=== PATIENT | male | born 1940 | race Caucasian/White ===

== ENCOUNTER 2020-09-10 13:59 | Inpatient (IN) ==
[2020-09-10 14:39] LABS: Basophils % 0.3 % (0.0-0.8); Eosinophils # 0.1 10*3/uL (0.0-0.87); Eosinophils % 0.9 % (0.00-10.9); Hematocrit 41.4 VOL% (42.0-52.0); Hemoglobin 14.2 GM/DL (14.0-18.0); Immature Granulocytes % 0.5 %; Immature Granulocytes Absolute 0.04 #; Lymphocytes # 1.7 10*3/uL (1.4-4.0); Mean Corpuscular HGB Conc 34.3 GM/DL (32-36); Mean Corpuscular Volume 89.6 FL (87-102); Monocytes % 7.2 % (1.7-12.7); Neutrophils % 72.1 % (38.7-73.9); Platelet Count 176 T/CUMM (130-400); Red Blood Count 4.62 MC/CUMM (3.8-5.5); Red Cell Distribution Width 13.6 % (9.3-17.3); White Blood Count 8.7 T/CUMM (4-12)
[2020-09-10 15:09] LABS: Alanine Aminotransferase 26 U/L (16-61); Albumin 3.2 G/DL (3.4-5.0); Alkaline Phosphatase 77 U/L (45-117); Aspartate Amino Transferase 55 U/L (0-37); Blood Urea Nitrogen 33 MG/DL (7-18); Calcium 8.8 MG/DL (8.5-10.1); Carbon Dioxide 20 MMOL/L (21-32); Estimated Glom Filtration Rate 47 ML/MIN; Ferritin 342.4 ng/ml (26-388); Glucose 354 MG/DL (74-106); Osmolality,Calculated 288.2 MOS/KG (273-304); Potassium 4.4 MMOL/L (3.5-5.1); Sodium 134 MMOL/L (136-145); Total Protein 7.5 G/DL (6.4-8.3)
[2020-09-10 15:19] LABS: INR 2.8
[2020-09-10 15:22] LABS: PT Patient Result 28.6 SECS (9.8-11.9)
[2020-09-10] MEDS ORDERED: cefTRIAXone 1,000 MG in SODIUM CHLORIDE 0.9% 100 ML IV STA (15:23)
[2020-09-10] MEDS ORDERED: AZITHROMYCIN 250 MG TABLET PO STA (15:23)
[2020-09-10] MEDS ORDERED: INSULIN REGULAR 100 UNIT/ML SUBCUT STA (15:38)
[2020-09-10] MEDS ORDERED: ONDANSETRON 4 MG/2 ML VIAL IV PRN (16:34)
[2020-09-10] MEDS ORDERED: ACETAMINOPHEN 325 MG TABLET PO PRN (16:34)
[2020-09-10] MEDS ORDERED: DEXTROSE 50% 25 GM/50 ML VIAL IV PRN (16:34)
[2020-09-10] MEDS ORDERED: hydrALAZINE 20 MG/1 ML VIAL IV PRN (16:34)
[2020-09-10] MEDS ORDERED: guaiFENesin/DM ER 600-30 MG TABLET PO PRN (16:34)
[2020-09-10] MEDS ORDERED: LACTULOSE 20 GM/30 ML UDCUP PO PRN (16:34)
[2020-09-10] MEDS ORDERED: GLUCAGON 1 MG VIAL IM PRN (16:34)
[2020-09-10] MEDS ORDERED: DOCUSATE SODIUM 100 MG CAPSULE PO PRN (16:34)
[2020-09-10] MEDS ORDERED: SODIUM CHLORIDE 0.9% 2,100 ML IV ONE (16:34)
[2020-09-10] MEDS: SODIUM CHLORIDE 0.9% 1,000 ML IV SCH (18:47)
[2020-09-10] MEDS: ALBUTEROL/IPRATROPIUM 3 ML NEB RESP TX SCH (19:20)
[2020-09-11] MEDS: ALBUTEROL/IPRATROPIUM 3 ML NEB RESP TX SCH ×4 (01:43→20:07)
[2020-09-11] MEDS: SODIUM CHLORIDE 0.9% 1,000 ML IV SCH ×3 (03:15→18:35)
[2020-09-11 06:42] LABS: Basophils % 0.6 % (0.0-0.8); Eosinophils # 0.2 10*3/uL (0.0-0.87); Hematocrit 35.1 VOL% (42.0-52.0); Immature Granulocytes % 0.4 %; Immature Granulocytes Absolute 0.02 #; Lymphocytes # 1.7 10*3/uL (1.4-4.0); Lymphocytes % 32.1 % (21.2-54.2); Mean Corpuscular HGB Conc 33.6 GM/DL (32-36); Mean Corpuscular Volume 91.4 FL (87-102); Mean Platelet Volume 11.4 FL (9.6-12.0); Monocytes % 7.1 % (1.7-12.7); Neutrophils % 55.8 % (38.7-73.9); Platelet Count 160 T/CUMM (130-400); Red Blood Count 3.84 MC/CUMM (3.8-5.5); Red Cell Distribution Width 13.5 % (9.3-17.3)
[2020-09-11 07:01] LABS: Albumin 2.4 G/DL (3.4-5.0); Bilirubin,Total 0.4 MG/DL (0.2-1.0); Calcium 8.1 MG/DL (8.5-10.1); Osmolality,Calculated 288.4 MOS/KG (273-304); Potassium 3.8 MMOL/L (3.5-5.1); Risk Ratio 3.55; Thyroid Stimulating Hormone 0.851 uIU/ml (0.358-3.74); Total Protein 6.2 G/DL (6.4-8.3); VLDL CHOLESTEROL 14.4 MG/DL
[2020-09-11 07:18] LABS: Hemoglobin 11.8 GM/DL (14.0-18.0); White Blood Count 5.2 T/CUMM (4-12)
[2020-09-11] MEDS ORDERED: FUROSEMIDE 40 MG/4 ML VIAL IV ONE ×2 (10:51→18:02)
[2020-09-11] MEDS: PANTOPRAZOLE 40 MG TABLET PO SCH (11:00)
[2020-09-11] MEDS: AZITHROMYCIN 250 MG TABLET PO SCH (11:01)
[2020-09-11] MEDS ORDERED: cefTRIAXone 1,000 MG in SYRINGE 1 EACH IV SCH (15:00)
[2020-09-11] MEDS ORDERED: WARFARIN 2.5 MG TABLET PO SCH (18:00)
[2020-09-11] MEDS ORDERED: GLUCAGON 1 MG VIAL IM PRN (18:01)
[2020-09-11] MEDS ORDERED: DEXTROSE 50% 25 GM/50 ML VIAL IV PRN (18:01)
[2020-09-11] MEDS: INSULIN LISPRO 100 UNIT/ML SUBCUT SCH (20:51)
[2020-09-12] MEDS: ALBUTEROL/IPRATROPIUM 3 ML NEB RESP TX SCH ×2 (01:48→07:28)
[2020-09-12 06:00] LABS: Basophils % 0.4 % (0.0-0.8); Eosinophils # 0.3 10*3/uL (0.0-0.87); Eosinophils % 4.1 % (0.00-10.9); Hematocrit 39.2 VOL% (42.0-52.0); Hemoglobin 13.1 GM/DL (14.0-18.0); Immature Granulocytes % 0.3 %; Immature Granulocytes Absolute 0.02 #; Lymphocytes # 1.6 10*3/uL (1.4-4.0); Lymphocytes % 23.1 % (21.2-54.2); Mean Corpuscular HGB Conc 33.4 GM/DL (32-36); Mean Corpuscular Volume 90.5 FL (87-102); Mean Platelet Volume 11.4 FL (9.6-12.0); Monocytes % 6.3 % (1.7-12.7); Neutrophils % 65.8 % (38.7-73.9); Platelet Count 216 T/CUMM (130-400); Red Blood Count 4.33 MC/CUMM (3.8-5.5); Red Cell Distribution Width 13.3 % (9.3-17.3)
[2020-09-12 06:07] LABS: INR 1.9; Partial Thromboplastin Time 33.8 SECS (23.9-33.8)
[2020-09-12 06:08] LABS: Bilirubin,Total 0.4 MG/DL (0.2-1.0); Calcium 8.4 MG/DL (8.5-10.1); Osmolality,Calculated 280.7 MOS/KG (273-304); Potassium 3.1 MMOL/L (3.5-5.1); Total Protein 7.4 G/DL (6.4-8.3)
[2020-09-12] MEDS ORDERED: POTASSIUM CHLORIDE 20 MEQ TABLET PO PRN (08:16)
[2020-09-12] MEDS: INSULIN LISPRO 100 UNIT/ML SUBCUT SCH (08:38)
[2020-09-12] MEDS: AZITHROMYCIN 250 MG TABLET PO SCH (08:39)
[2020-09-12] MEDS: PANTOPRAZOLE 40 MG TABLET PO SCH (08:39)
[2020-09-12 12:28] VITALS: BP 147/82
== END 2020-09-12 13:28 | disposition home or self-care (01) | DRG 177 ==
LOC: N.ED 13:59 → N.EDINP 16:34 → N.5E 17:11
PROVIDERS: ADMIT Internal Medicine; ATTEND Internal Medicine